=== PATIENT | male | born 1950 | race African-American/Black ===

== ENCOUNTER 2017-07-30 18:37 | Emergency (ER) | payer MEDICARE, MEDICAID ==
[~2017-07-30] VITALS: Ht 177.8 cm; Wt 70.0 kg
[2017-07-30 19:44] LABS: BASOPHILS % 1.1 % (0.0-2.0); EOSINOPHILS % 1.1 % (0.0-5.0); HEMATOCRIT. 44.2 % (42.0-52.0); HEMOGLOBIN. 14.1 g/dL (14.0-18.0); LYMPHOCYTES % 36.7 % (20.0-50.0); MEAN CORPUSCULAR HEMOGLOBIN 23.7 pg (28.0-32.0); MEAN CORPUSCULAR VOLUME 74.4 fL (80.0-94.0); MEAN PLATELET VOLUME 7.6 fl (7.4-10.4); MONOCYTES % 8.1 % (2.0-8.0); PLATELET 292 x1000/uL (130-400); RED BLOOD CELL COUNT 5.94 mill/uL (4.7-6.1); RED CELL DISTRIBUTION WIDTH 15.5 % (11.6-14.6)
[2017-07-30 19:46] LABS: PROTHROMBIN TIME 10.6 sec (9.4-11.6)
[2017-07-30 19:53] LABS: CHLORIDE 99 mEq/L (98-107)
[2017-07-30 19:56] LABS: AMMONIA 34 uMol/L (<32)
[2017-07-30 19:58] LABS: CARBON DIOXIDE 21 mEq/L (21-32)
[2017-07-30 20:03] LABS: CREATINE KINASE 68 IU/L (39-308)
[2017-07-30 20:04] LABS: TROPONIN I < 0.02 ng/mL (0.00-0.04)
[2017-07-30 20:12] LABS: ETHANOL BLOOD 372 mg/dL
[2017-07-30 20:58] LABS: CLARITY URINE CLEAR (CLEAR); COLOR URINE YELLOW (YELLOW); GLUCOSE URINE 3+ (NEGATIVE); KETONES URINE NEGATIVE (NEGATIVE); LEUKOCYTE ESTERASE URINE NEGATIVE (NEGATIVE); NITRITE URINE NEGATIVE (NEGATIVE); OCCULT BLOOD URINE NEGATIVE (NEGATIVE); PH URINE 5.5 (4.5-8.0); PROTEIN URINE NEGATIVE (NEGATIVE); SPECIFIC GRAVITY URINE 1.011 (1.005-1.030); UROBILINOGEN URINE 0.2 E.U./dL (0.2-1.0)
[2017-07-30 21:09] LABS: *AMPHETAMINES SCREEN URINE NEGATIVE (NEGATIVE); *BARBITURATES SCREEN URINE NEGATIVE (NEGATIVE); *BENZODIAZEPINES SCREEN URINE NEGATIVE (NEGATIVE); *COCAINE SCREEN URINE NEGATIVE (NEGATIVE); CANNABINOID URINE SCREEN NEGATIVE (NEGATIVE); METHADONE URINE SCREEN NEGATIVE (NEGATIVE); OPIATES URINE SCREEN NEGATIVE (NEGATIVE); PHENCYCLIDINE URINE SCREEN NEGATIVE (NEGATIVE)
[2017-07-30 21:45] VITALS: BP 134/81
== END 2017-07-31 00:31 | disposition home or self-care (01) ==
LOC: ER 19:18
DX: F10.129 Alcohol abuse with intoxication, unspecified (principal); Y90.8 Blood alcohol level of 240 mg/100 ml or more
CPT/HCPCS: 36415; 51701; 70450; 71010; 72125; 80053; 80305; 81001; 82010; 82140; 82550; 82962; 83605; 83880; 84443; 84484; 85025; 85610; 86850; 86900; 86901; 93005; 99285; G0482